=== PATIENT | male | born 1970 | race Caucasian/White ===

== ENCOUNTER → 2016-12-03 | Day surgery (SDC) | payer OTHER ==
[~2016-12-03] VITALS: Ht 188 cm; Wt 97.5 kg
[~2016-12-03] MED LIST: 0.9% Sodium Chloride 1,000 ML IV SCH; OMEP20TA24 PO; Sodium Chloride LOK Flush 10 mL Syringe IV PRN; fentaNYL-PF 50 mCg/mL 2 mL Inj IVPUSH PRN
[2016-12-03 07:50] VITALS: BP 133/76; PULSE 72; O2SAT 97
[2016-12-03 08:24] VITALS: BP 127/82; PULSE 78; RESP 14; O2SAT 93
[2016-12-03 08:35] VITALS: BP 126/84; PULSE 71; RESP 14; O2SAT 95
--- NOTE | 2016-12-03 09:22 | ENDO ---
[address] [address] ENDOSCOPY PROCEDURE PATIENT: ELIANA DIAZ : 1970 MR#: [id number] ADMIT: 12/03/2016 JOB ID: [id number] DATE OF SERVICE: 12/03/2016 TYPE OF OPERATION: Esophagogastroduodenoscopy with biopsy. PREOPERATIVE DIAGNOSIS(ES): History of duodenal ulcer. POSTOPERATIVE DIAGNOSIS(ES): Irregular Z-line, status post biopsy. ANESTHESIA: Fentanyl 175 mcg, Versed 8 mg IV administered. COMPLICATIONS: None. BLOOD LOSS: Minimal. DESCRIPTION OF PROCEDURE: After risks and benefits explained to the patient, informed consent was obtained. After anesthesia administered, upper endoscope was then inserted in the mouth intubating the esophagus, stomach and second portion, and the mucosa carefully examined. After procedure was done, the scope withdrawn and the procedure terminated. FINDINGS: Upon inspection of the esophagus, there was an irregular Z-line located at the distal esophagus. The Z-line located 40 cm from incisors. The Z-line suspicious for Vasquez esophagus. Upon entering the stomach, the stomach appeared normal without masses, ulcers, or lesions. Retroflexion was normal. Duodenal bulb, first and second portions normal. Biopsies taken of antrum, body and distal esophagus. There was no evidence of esophageal varices or a previous ulcer that was seen, and no evidence of portal hypertensive gastropathy. IMPRESSION: Irregular Z-line, status post biopsy. RECOMMENDATIONS: 1. Await pathology results. 2. Start omeprazole 40 mg by mouth once a day. 3. Follow up in GI clinic as needed.
--- NOTE | 2016-12-07 17:00 | PATH ---
SURGICAL PATHOLOGY Attending Physician:Chai Ma MD CASE STATUS: Signed Out PATIENT NAME: ELIANA DIAZ II PID: [id number] : 1970 DATE COLLECTED:12/03/2016 22:10 SPECIMEN: 1: Esophagus, Biopsy 2: Gastric, Biopsy 3: Stomach, Antrum, Biopsy CLINICAL HISTORY: 1). DISTAL ESOPHAGUS 2). GASTRIC BODY, RULE OUT H.PYLORI 3). ANTRUM FINAL DIAGNOSIS: 1. Distal Esophagus, Biopsy: Squamocolumnar junctional mucosa with chronic inflammation. Negative for intestinal metaplasia, dysplasia or malignancy. 2-3. Gastric Body, Antrum, Biopsies: Gastric antral and body mucosa with chronic gastritis. Negative for Helicobacter organisms by immunohistochemistry in each part. Negative for intestinal metaplasia, dysplasia or malignancy. ICD10: R10.9 GROSS DESCRIPTION: The specimen is received in three formalin filled containers labeled with the patient's name. 1). The specimen is labeled "distal esophagus" and consists of 3 portions of tissue which aggregate to 0.2 x 0.2 x 0.2 CM. The specimen is entirely submitted in cassette 1A. 2). The specimen is labeled "gastric" and consists of 2 portions of tissue which aggregate to 0.3 x 0.3 x 0.2 CM. The specimen is entirely submitted in cassette 2A. 3). The specimen is labeled "antrum" and consists of 2 portions of tissue which aggregate to 0.3 x 0.2 x 0.2 CM. The specimen is entirely submitted in cassette 3A. 12/03/2016DC MICRO DESCRIPTION: Part 2: An immunohistochemical stain was performed to evaluate for Helicobacter organisms and is negative. A control stain showed appropriate reactivity. Part 3: An immunohistochemical stain was performed to evaluate for Helicobacter organisms and is negative. A control stain showed appropriate reactivity. * This test was developed and its performance characteristics determined by [facility]. It has not been cleared or approved by the U.S. Food and Drug Administration. The FDA has determined that such clearance or approval is not necessary. This test is used for clinical purposes. It should not be regarded as investigational or for research. ICD-9 CODES: CPT CODES: 1: 22146 2: 85972, 06811 3: 64805, 12162 Electronically Signed Out Jimmy Paul MD, Ph.D. [facility] [address], [place] [address] Technical component performed at [facility], [address], [place], [address]
== END | disposition home or self-care (01) ==
LOC: END 00:59
PROVIDERS: ATTEND Internal Medicine Gastroenterology
DX: K29.50 Unspecified chronic gastritis without bleeding (principal); K26.4 Chronic or unspecified duodenal ulcer with hemorrhage; Z87.891 Personal history of nicotine dependence; Z79.899 Other long term (current) drug therapy
CPT/HCPCS: 43239; G0500; J2250; J3010; J7030